=== PATIENT | female | born 1935 | race Caucasian/White ===

== ENCOUNTER 2021-07-06 12:54 | Inpatient (IN) | payer MEDICARE, OTHER ==
[~2021-07-06] VITALS: Ht 167.6 cm; Wt 79.4 kg
[2021-07-06 13:00] VITALS: BP 127/76
[2021-07-06 13:18] LABS: ABSOLUTE BASOPHILS 0.1 thou/uL (0.0-0.2); ABSOLUTE EOSINOPHILS 0.3 thou/uL (0.0-0.7); ABSOLUTE LYMPHOCYTES 1.8 thou/uL (0.8-5.3); ABSOLUTE MONOCYTES 0.7 thou/uL (0.0-1.2); ABSOLUTE NEUTROPHILS 5.8 thou/uL (1.6-8.1); BASOPHILS 1.2 %; EOSINOPHILS 3.2 %; HEMATOCRIT 40.3 % (37.0-47.0); HEMOGLOBIN 13.2 gm/dL (12.0-15.0); LYMPHOCYTES 20.4 %; MCH 29.8 pg (26.0-34.0); MCHC 32.7 g/dL (28.0-37.0); MONOCYTES 8.5 %; MPV 8.7 fl. (7.2-11.1); NUCLEATED RBCS 0 /100WBC; PLATELET COUNT* 153 thou/uL (150-400); POLYS 66.7 %; RBC 4.42 mil/uL (4.20-5.00); RDW-CV 15.4 % (10.5-14.5); WBC 8.7 thou/uL (4.0-11.0)
[2021-07-06 13:19] LABS: URINE BILIRUBIN NEGATIVE (Negative); URINE BLOOD NEGATIVE (Negative); URINE CLARITY CLEAR; URINE COLOR YELLOW; URINE GLUCOSE-RANDOM NEGATIVE (Negative); URINE KETONES NEGATIVE (Negative); URINE LEUKOCYTES-REFLEX NEGATIVE (Negative); URINE NITRITE-REFLEX NEGATIVE (Negative); URINE PROTEIN NEGATIVE (Negative); URINE UROBILINOGEN 0.2 E.U./dl (0.2-1.0)
--- NOTE | 2021-07-06 13:20 | NUR ---
PER PT REQUEST, ATTEMPTED TO CONTACT PT'S SON, EMERGENCY CONTACT, LEFT VOICEMAIL FOR RETURN CALL
[2021-07-06] MEDS ORDERED: NORVASC10 MG PO (13:21)
[2021-07-06] MEDS ORDERED: OMEPRAZOLE 20 M20 M1 PO (13:22)
[2021-07-06] MEDS ORDERED: SERTRALINE HCL100 MG PO (13:23)
[2021-07-06] MEDS ORDERED: SELENIUM SULFI120 M1 PO (13:23)
[2021-07-06] MEDS ORDERED: VITAMIN D3125 MC2 PO (13:24)
[2021-07-06] MEDS ORDERED: PRESERVISION A1 EAC2 PO (13:24)
[2021-07-06] MEDS ORDERED: ATIVAN0.5 M1 PO (13:25)
[2021-07-06 13:28] LABS: CALCIUM 8.7 mg/dL (8.5-10.1); POTASSIUM 4.1 mmol/L (3.5-5.1)
[2021-07-06 13:33] LABS: ALBUMIN 3.3 g/dL (3.4-5.0); TOTAL BILIRUBIN 0.5 mg/dL (<0.1-1.0); TOTAL PROTEIN 6.4 g/dL (6.4-8.2)
[2021-07-06 16:30] VITALS: BP 189/78
[2021-07-06 17:09] VITALS: BP 184/93
--- NOTE | 2021-07-06 17:42 | NUR ---
PT ADMITTED FROM ER. PT SCREAMING OUT IN PAIN, PHYSICIAN NOTIFIED. PT ORIENTED TO ROOM. FALL RISK PRECAUTIONS IN PLACE. CALL LIGHT WITHIN REACH.
--- NOTE | 2021-07-06 18:16 | NUR ---
PT SLEEPING IN BED. CALL LIGHT WITHIN REACH. PAIN MEDS GIVEN ORDERED. FALL RISK PRECAUTIONS IN PLACE. HOURLY ROUNDING COMPLETED.
[2021-07-06 20:30] VITALS: BP 135/61
--- NOTE | 2021-07-07 06:17 | NUR ---
PATIENT SLEPT PART OF THE NIGHT. PATIENT PULLED OUT IV. NEW ONE WAS STARTED CHARTED. PATIENT WAS GIVEN PAIN MEDICINE TWICE WITH SOME RELIEF. RYAN REMAINS TO DEPENDENT DRAIN. BED ALARM REMAINS ON FOR PATIENT SAFETY WILL CONTINUE TO MONITOR.
[2021-07-07 07:05] VITALS: BP 152/69
--- NOTE | 2021-07-07 09:16 | EKG ---
[place] [address] ELECTROCARDIOGRAM REPORT Name: LEOBARDO WEEKS Room: [address] ADM IN .R.#: [id number] Admission: 07/06/21 Attend Phys: Medardo Olivia Discharge: Date of : 33 Date of Service: 07/06/21 1300 Report #: [id number] THIS REPORT FOR: //name// [facility] ED Test Date: 2021-07-06 Test Time: 13:00:37 Pat Name: LEOBARDO WEEKS Department: Room: [facility] Gender: F Skiver Hand: DEXTER : 1935 Requested By: Christian Guerra Order Number: [id number] MD: Nathan Ayon Measurements Intervals [place] Rate: 75 P: 54 WA: 138 QRS: 17 QRSD: 89 T: 72 QT: 399 QTc: 446 Interpretive Statements Sinus rhythm septal infarct, age indeterminate No previous ECG available for comparison Electronically Signed On 07-07-2021 9:16:01 CDT by Nathan Ayon [email or web address] <ELECTRONICALLY SIGNED> By: Nathan Ayon MD, FACC 07/07/21 0916 1300 1300 Nathan Ayon MD, [facility] /EPI
[2021-07-07 16:00] VITALS: BP 162/77
--- NOTE | 2021-07-07 16:07 | NUR ---
PT REMAINED ALERT AND ORIENTED. PT RESTING IN BED. FALL RISK PRECAUTIONS IN PLACE. HOURLY ROUNDING COMPLETED. CALL LIGHT WITHIN REACH. POTASSIUM REPLACED,
[2021-07-07 20:00] VITALS: BP 147/72
[2021-07-08 01:40] VITALS: BP 160/77
[2021-07-08 04:34] LABS: CALCIUM 9.8 mg/dL (8.5-10.1); CREATININE 0.7 mg/dL (0.6-1.3); POTASSIUM 3.9 mmol/L (3.5-5.1)
[2021-07-08 04:45] LABS: HEMATOCRIT 37.1 % (37.0-47.0); HEMOGLOBIN 12.6 gm/dL (12.0-15.0); MCH 30.8 pg (26.0-34.0); MCV 90.5 fL (80.0-100.0); MPV 9.1 fl. (7.2-11.1); RBC 4.1 mil/uL (4.20-5.00)
[2021-07-08 05:44] VITALS: BP 150/65
[2021-07-08 08:04] VITALS: BP 147/75
--- NOTE | 2021-07-08 15:30 | NUR ---
Cm spoke with Pt's granddtr via phone. Pt resides at [facility], granddtr hopeful that Pt will be able to return [place]. Therapies to eval to determine Pt's mobility status. Pt was ambulatory with a walker prior to this hospitalization. No o2. Pt's son is also in the hospital, he normally would go and see his mom daily, Pt does not know her son is here per granddtr. Pt does have dementia. Ortho consulted, all images are negative, but Pt continues scream out when being touched. Cm following for [facility] vs SNF dc.
[2021-07-08 16:00] VITALS: BP 146/74
--- NOTE | 2021-07-08 18:12 | NUR ---
PT A&Ox2. VITALS STABLE. IV PATENT. DID NOT GET UP WITH PT OR NURSING STAFF. PT SCREAMS IN PAIN WHEN MOVING OR TOUCHING LEFT LEG. MORPHINE GIVEN, PT STARTED HAVING VISUAL HALUCINATIONS. NORCO GIVEN FOR PAIN AFTER STATING SHE WAS HAVING HALUCINATIONS. SWALLOWS PILLS WELL. TOLERATING DIET, SET UP. FALL PRECAUTIONS IN PLACE. WILL CONTINUE TO MONTIOR.
[2021-07-08 20:05] VITALS: BP 132/59
[2021-07-08 23:57] VITALS: BP 132/75
[2021-07-09 04:04] VITALS: BP 142/61
[2021-07-09 04:14] VITALS: BP 144/72
--- NOTE | 2021-07-09 04:33 | NUR ---
PT ALERT TO SELF, ON 2L-NC O2. SHE DOES NOT ANSWER QUESTIONS. PAIN MEDS GIVEN EVERY 3-4 HOURS APPARENTLY IN PAIN AT TIMES. SHE CRIES OUT WHEN TOUCHED/MOVED. SHE IS A MAX ASSIST AND Q2 TURN. RYAN HAS CLEAR YELLOW URINE OUTPUT. SHE RECEIVED ALL MEDS SCHEDULED. NO SKIN ISSUES. BEDREST.
[2021-07-09 08:00] VITALS: BP 145/65
--- NOTE | 2021-07-09 13:44 | NUR ---
CM spoke with Pt's granddtr today, plan skilled at dc. Granddtr and son want Pt to dc to [facility], [facility] facilities phone and fax lines are down, CM continues to attempt to fax referral. Ortho consulted. Therapies to see.
[2021-07-09 16:00] VITALS: BP 159/71
[2021-07-09 20:29] VITALS: BP 167/76
[2021-07-10 07:10] VITALS: BP 161/78
[2021-07-10 08:04] VITALS: BP 161/78
[2021-07-10] MEDS ORDERED: NORCO5 PO (13:05)
--- NOTE | 2021-07-10 13:13 | NUR ---
Pt discharging to [facility] today, facility to pick up attendant at 4pm. Faxed dc orders. Chart copied. Nurse report number is [phone]. Updated Pt's granddtr, granddtr to bring Pt's close to the hospital. CM updated [facility] of skilled plans, prior to returning there.
--- NOTE | 2021-07-10 14:54 | NUR ---
PT CHART COPIED. IV REMOVED. PT BELONGINGS GATHERED. PT LEFT VIA AMBULANCE TO SKILLED FACILITY. FALL RISK PRECAUTIONS IN PLACE. HOURLY ROUNDING COMPLETED.
--- NOTE | 2021-07-11 15:14 | CON ---
[facility] [address] [place] [address] CONSULTATION Name: LEOBARDO WEEKS Room: [address] IN [place].#: [id number] Admission: 07/06/21 Attend Phys: Monica Phillips Discharge: 07/10/21 Date of : 33 Report #: [id number] THIS REPORT FOR: cc: Gautam Calvillo MD, Dennis R MD Greiner, Robert F. II DO ~ DATE OF CONSULTATION: 07/09/2021 ORTHOPEDIC CONSULTATION HISTORY OF PRESENT ILLNESS: The patient is an 86-year-old female with past medical history of hypertension, GERD, depression and anxiety, presented to the ER after mechanical fall at [facility]. States she was walking down the hallway and fell. Does not recall the details of the fall. The patient just remembers being on the ground. She was in some pain in the leg and no radiating symptoms. Did have no numbness or tingling. States it is worse with bending of the knee and hip. The patient has a small laceration to her forehead and left side of her jaw. It was the witnessed fall, did not result in loss of consciousness. REVIEW OF SYSTEMS: A 14-point review of systems was obtained and negative except for pertinent positives in the HPI. FAMILY HISTORY: Reviewed and noncontributory to HPI. SOCIAL HISTORY: The patient denies tobacco, alcohol, or illicit drug use. PHYSICAL EXAMINATION: GENERAL: The patient is alert and oriented, resting in bed. EYES: PERRLA, EOMI. HEENT: Normocephalic. Ears: Patent. Nose: Moist mucous membranes. Throat: Moist. Tongue: Midline. NECK: Supple, nontender, no JVD. RESPIRATORY: Clear to auscultation bilaterally. No labored respirations. Breath sounds equal. CARDIOVASCULAR: Normal rate, regular rhythm. GASTROINTESTINAL: Abdomen is soft, nontender, and nondistended. INTEGUMENTARY: Warm, dry, and intact. MUSCULOSKELETAL: The patient has some pain with flexion of the knee and hip. At this time, there is only mild effusion. No evidence of erythema or significant infection throughout the lower extremity. No palpable abscesses. Hip and knee range of motion 2 degrees to 110 degrees. Range of motion of the knee and flexion of the hip and internal and external rotation does elicit some mild pain. NEUROLOGIC: The [place] [address] CONSULTATION Name: LEOBARDO WEEKS Room: [address]#: [id number] Admission: 07/06/21 Attend Phys: Monica Phillips Discharge: 07/10/21 Date of : 33 Report #: [id number] PSYCHIATRIC: The patient is cooperative, appropriate mood and affect. Some slight confusion. RADIOLOGY EXAMS: X-ray of the pelvis yields no bony abnormalities significant for pelvis with no acute changes. Portable chest shows no acute cardiopulmonary processes. No pneumothorax or rib displacement is seen. CT of the pelvis healed prior postoperative changes of the posterior spinal fusion. No acute bony abnormality. Slight degeneration in the hips is present. C-spine and head are present in chart. No significant acute changes. AP and lateral of the femur show no acute osseous abnormality. 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 It could be arthritis located within the knee. LABORATORY STUDIES: White blood cells on admission 8.7, now 13.0; hemoglobin 12.6; hematocrit 37.1; and platelet count 126. Sodium 136, potassium 3.9, chloride 101, carbon dioxide 29, BUN and creatinine 18 and 0.7, glucose 124. Urine on the 7th shows negative for significant change. ASSESSMENT AND PLAN: Left knee effusion, left hip pain status post fall. At this time, the patient has some mild effusion of the knee, is able to continue to move it, although there is some pain. The patient's left hip has no evidence of fracture at this time, most likely, contusion in nature. I would recommend symptomatic care at this time. Should any signs of erythema present within the leg or extremities, I will be glad to reevaluate. At this time, no further orthopedic input other than symptomatic care for current contusion and fall. I appreciate this consultation. <ELECTRONICALLY SIGNED> By: Go Hines II, DO 07/11/21 1514 [id number] Hines II, DO /nt
== END 2021-07-10 16:44 | DRG 948 ==
LOC: M.ERS 12:54 → M.2W 14:40 → M.TBA-ER 14:40 → M.3W 16:40 → M.2W 07-07 18:40
PROVIDERS: Family Medicine; ADMIT Internal Medicine; ATTEND Internal Medicine
DX: G89.11 Acute pain due to trauma (principal); M25.562 Pain in left knee; I10 Essential (primary) hypertension; K21.9 Gastro-esophageal reflux disease without esophagitis; F32.9 Major depressive disorder, single episode, unspecified; F41.9 Anxiety disorder, unspecified; S70.02XA Contusion of left hip, initial encounter; S01.81XA Laceration without foreign body of other part of head, initial encounter; M25.462 Effusion, left knee; R68.84 Jaw pain; W18.39XA Other fall on same level, initial encounter; Z20.822 Contact with and (suspected) exposure to COVID-19; Y93.89 Activity, other specified; Z79.899 Other long term (current) drug therapy; Y99.8 Other external cause status; Y92.89 Other specified places as the place of occurrence of the external cause